=== PATIENT | female | born 1935 | race Two or more races ===

== ENCOUNTER 2019-06-25 02:23 | Emergency (ER) | payer OTHER ==
[~2019-06-25] VITALS: Ht 165.1 cm; Wt 97.5 kg
[2019-06-25 02:25] VITALS: BP 126/62
--- NOTE | 2019-06-25 02:25 | NUR ---
ED Nurse Note: Patient carlos RA 60 from home c/o sub sternal chest pain radiating to her back that has been an on going issue for the past 30 minutes, patient was given 1 spray of nitro en route and on time of arrival is still complaining of chest pain. patient is alert and oriented x4. Patient describes her pain as a pressure like pain
[2019-06-25] MEDS ORDERED: Nitroglycerin 2% oint pkt TOPIC ONE (02:30)
[2019-06-25] MEDS ORDERED: LORazepam Inj 2mg/ml 1ml IV ONE (02:30)
[2019-06-25] MEDS ORDERED: Aspirin Baby 81mg ORAL ONE (02:45)
--- NOTE | 2019-06-25 03:08 | NUR ---
HAND-OFF: Report given to JOE Kraus.
[2019-06-25] MEDS ORDERED: Morphine Sulfate 2mg/ml Inj(IV/IM USE ONLY) IVP ONE ×2 (03:15→05:15)
--- NOTE | 2019-06-25 03:17 | Emergency Room Report ---
History of Present Illness General Chief Complaint: Chest Pain Source: Patient, EMS Present Illness HPI Patient presents via EMS with substernal chest pain. Is 07/27. Apparently they were having a heated discussion at a family gathering and the patient was upset. Paramedics administered 1 spray of nitroglycerin with some help. The patient also feels anxious. Aspirin was held in the field because the patient states that she has a "allergy" which is actually that she gets stomach upset with aspirin. She poorly characterizes the pain. The patient has risk factors of hypertension, hypercholesterol and diabetes. There is no history of smoking. No fevers or chills. No productive cough. No swelling or calf tenderness. The patient is incontinent and wears a Pampers and denies any dysuria. There is no diarrhea. No joint pain. Allergies: Coded Allergies: No Known Allergies (Unverified , 06/25/19) Patient History Past Medical History: see triage record Social History: Denies: smoking, alcohol use, drug use Social History Narrative With family Last Menstrual Period: n/a Reviewed Nursing Documentation: PMH: Agreed; PSxH: Agreed Nursing Documentation-PMH Past Medical History: No Stated History Review of Systems All Other Systems: negative except mentioned in HPI Physical Exam Vital Signs Date Time Temp Pulse Resp B/P (MAP) Pulse Ox O2 Delivery O2 Flow Rate FiO2 06/25/19 02:19 98.4 74 18 156/66 (96) 98 Room Air Sp02 EP Interpretation: reviewed, normal General Appearance: well appearing, GCS 15, mild distress, obese Head: normocephalic, atraumatic Eyes: bilateral eye normal inspection, bilateral eye PERRL, bilateral eye EOMI ENT: moist mucus membranes Neck: supple Respiratory: chest non-tender, lungs clear, normal breath sounds Cardiovascular #1: regular rate, rhythm Cardiovascular #2: 2+ radial (R) Gastrointestinal: normal inspection, normal bowel sounds, non tender, no mass, non-distended, overweight Musculoskeletal: back normal, normal range of motion Neurologic: alert, grossly normal, oriented - X2 Psychiatric: anxious - Tearful Skin: no rash Medical Decision Making Diagnostic Impression: Primary Impression: Chest pain Qualified Codes: R07.9 - Chest pain, unspecified Additional Impressions: Anxiety Urinary tract infection Qualified Codes: N30.00 - Acute cystitis without hematuria Hypokalemia ER Course Presents with substernal chest pain with several risk factors. Differential includes acute myocardial infarction, acute coronary syndrome, anxiety, reflux amongst others. Patient evaluated with EKG, chest x-ray and labs. The patient is treated with nitrates, lorazepam and a small dose of aspirin. The patient is placed on a monitoring tech EKG sinus rhythm with rate of 75 normal EKG. Chest x-ray paratracheal haziness RUL. Initial troponin negative. Pain still persisting. Down to 8/10 but comes in waves and is severe. Morphine is administered. The patient is more calm after Lorazepam. Urine returns with nitrites and pyuria. Rocephin ordered. K low. ordered. Pain improved. Discussed with Dr. Murphy who accepts in transfer. CT ordered as abnormal Xray and suggested to r/o aneurism. Slight increase in pain before CT. Morphine repeated. After CT pain returned. Poorly characterized. Repeat EKG. Repeat EKG with sinus bradycardia rate 57 first-degree AV block voltage criteria for left ventricular hypertrophy and prolonged QT of 478ms. Nonspecific ST-T wave changes. Performed at 5:31. Vomit after morphine and [place]. Improved. CT chest no aneurism. Patient transferred for observation ALS. Laboratory Tests Test 06/25/19 03:14 White Blood Count 7.5 K/UL (4.8-10.8) Red Blood Count 3.98 M/UL (4.20-5.40) L Hemoglobin 12.0 G/DL (12.0-16.0) Hematocrit 35.6 % (37.0-47.0) L Mean Corpuscular Volume 89 FL (80-99) Mean Corpuscular Hemoglobin 30.3 PG (27.0-31.0) Mean Corpuscular Hemoglobin Concent 33.8 G/DL (32.0-36.0) Red Cell Distribution Width 11.5 % (11.6-14.8) L Platelet Count 290 K/UL (150-450) Mean Platelet Volume 5.6 FL (6.5-10.1) L Neutrophils (%) (Auto) 56.6 % (45.0-75.0) Lymphocytes (%) (Auto) 27.3 % (20.0-45.0) Monocytes (%) (Auto) 11.6 % (1.0-10.0) H Eosinophils (%) (Auto) 3.7 % (0.0-3.0) H Basophils (%) (Auto) 0.8 % (0.0-2.0) Prothrombin Time 10.2 SEC (9.30-11.50) Prothrombin Time INR 1.0 (0.9-1.1) PTT 27 SEC (23-33) Urine Color Pale yellow Urine Appearance Slightly cloudy Urine pH 6.5 (4.5-8.0) Urine Specific [place] 1.010 (1.005-1.035) Urine Protein 2+ (NEGATIVE) H Urine Glucose (UA) Negative (NEGATIVE) Urine Ketones Negative (NEGATIVE) Urine Blood 3+ (NEGATIVE) H Urine Nitrite Positive (NEGATIVE) H Urine Bilirubin Negative (NEGATIVE) Urine Urobilinogen Normal MG/DL (0.0-1.0) Urine Leukocyte Esterase 1+ (NEGATIVE) H Urine RBC 2-4 /HPF (0 - 2) H Urine WBC 5-10 /HPF (0 - 2) H Urine Squamous Epithelial Cells Moderate /LPF (NONE/OCC) H Urine Bacteria Many /HPF (NONE) H Sodium Level 130 MMOL/L (136-145) L Potassium Level 2.8 MMOL/L (3.5-5.1) L Chloride Level 95 MMOL/L (98-107) L Carbon Dioxide Level 23 MMOL/L (21-32) Anion Gap 13 mmol/L (5-15) Blood Urea Nitrogen 13 mg/dL (7-18) Creatinine 0.7 MG/DL (0.55-1.30) Estimate Glomerular Filtration Rate mL/min (>60) Glucose Level 135 MG/DL (74-106) H Calcium Level 9.4 MG/DL (8.5-10.1) Total Bilirubin 0.3 MG/DL (0.2-1.0) Aspartate Amino Transferase (AST) 15 U/L (15-37) Alanine Aminotransferase (ALT) 17 U/L (12-78) Alkaline Phosphatase 66 U/L (46-116) Total Creatine Kinase 62 U/L (26-308) Troponin I 0.000 ng/mL (0.000-0.056) Pro-B-Type Natriuretic Peptide 105 pg/mL (0-125) Total Protein 7.8 G/DL (6.4-8.2) Albumin 3.9 G/DL (3.4-5.0) Globulin 3.9 g/dL Albumin/Globulin Ratio 1.0 (1.0-2.7) EKG Diagnostic Results Rate: normal Rhythm: NSR ST Segments: no acute changes ASA given to the pt in ED: Yes Rhythm Strip Diag. Results EP Interpretation: yes Rhythm: NSR, no PVC's, no ectopy Chest X-Ray Diagnostic Results Chest X-Ray Diagnostic Results : Chest X-Ray Ordered: Yes # of Views/Limited/Complete: 1 View Indication: Chest Pain Interpretation: no consolidation, no effusion, no pneumothorax, other - Right upper lobe paratracheal haziness Impression: Other Electronically Signed by: Electronically signed by Gera Washington MD CT/MRI/US Diagnostic Results CT/MRI/US Diagnostic Results : Imaging Test Ordered: CT chest Impression 1. No aortic dissection or aneurysm. Moderate to extensive atherosclerotic changes of the aorta as described. 2. No evidence of acute abnormality. Last Vital Signs Date Time Temp Pulse Resp B/P (MAP) Pulse Ox O2 Delivery O2 Flow Rate FiO2 06/25/19 09:03 97.9 76 16 160/87 99 Room Air Status: improved Disposition: PLACE IN OBSERVATION Condition: Serious Referrals: NON PHYSICIAN (PCP) Gera Washington MD Jun 25, 2019 03:17
[2019-06-25 03:22] LABS: BASOPHILS % (AUTO) 0.8 % (0.0-2.0); EOSINOPHILS % (AUTO) 3.7 % (0.0-3.0); HEMATOCRIT 35.6 % (37.0-47.0); LYMPHOCYTES % (AUTO) 27.3 % (20.0-45.0); MEAN CORPUSCULAR VOLUME 89 FL (80-99); MONOCYTES % (AUTO) 11.6 % (1.0-10.0); NEUTROPHILS % (AUTO) 56.6 % (45.0-75.0); PLATELET COUNT 290 K/UL (150-450); RED BLOOD COUNT 3.98 M/UL (4.20-5.40); RED CELL DISTRIBUTION WIDTH 11.5 % (11.6-14.8); WHITE BLOOD COUNT 7.5 K/UL (4.8-10.8)
[2019-06-25 03:24] LABS: BILIRUBIN, URINE NEGATIVE (NEGATIVE); COLOR,URINE PALE YELLOW; GLUCOSE, URINE (UA) NEGATIVE (NEGATIVE); KETONES,URINE NEGATIVE (NEGATIVE); LEUKOCYTE ESTERASE ,URINE 1+ (NEGATIVE); NITRITE,URINE POSITIVE (NEGATIVE); PH,URINE 6.5 (4.5-8.0); PROTEIN,URINE 2+ (NEGATIVE); UROBILINOGEN,URINE NORMAL MG/DL (0.0-1.0)
[2019-06-25 03:25] LABS: APPEARANCE,URINE SLIGHTLY CLOUDY
[2019-06-25 03:30] VITALS: BP 139/74
--- NOTE | 2019-06-25 03:30 | NUR ---
ED Nurse Note: Resumed care as pt primary, pt is in bed awake, alert and oriented x 4, pt daughter at bedside, pt is on cardiac monitoring, recently medicated, remains with pain at 4/10, pt is resting quietly, will continue to closely monitor and resume care as ordered.
[2019-06-25] MEDS ORDERED: cefTRIAXone 1 GM in NS 55 ML IVPB ONE (03:45)
[2019-06-25 03:48] LABS: ALANINE AMINOTRANSFERASE 17 U/L (12-78); ALBUMIN 3.9 G/DL (3.4-5.0); ALKALINE PHOSPHATASE 66 U/L (46-116); ANION GAP 13 mmol/L (5-15); ASPARTATE AMINO TRANSFERASE 15 U/L (15-37); BILIRUBIN,TOTAL 0.3 MG/DL (0.2-1.0); BLOOD UREA NITROGEN 13 mg/dL (7-18); CALCIUM 9.4 MG/DL (8.5-10.1); CARBON DIOXIDE 23 MMOL/L (21-32); CHLORIDE 95 MMOL/L (98-107); CREATINE KINASE 62 U/L (26-308); CREATININE 0.7 MG/DL (0.55-1.30); POTASSIUM 2.8 MMOL/L (3.5-5.1); SODIUM 130 MMOL/L (136-145)
--- NOTE | 2019-06-25 03:51 | NUR ---
Face sheet, clinical notes faxed to [facility] at [phone] as requested.
--- NOTE | 2019-06-25 03:54 | Diagnostic Imaging Report ---
EXAM: XR Chest, 1 View CLINICAL HISTORY: CP TECHNIQUE: Frontal view of the chest. COMPARISON: No relevant prior studies available. IMPRESSION: There is increased paramediastinal masslike consolidation in the right upper lobe. May represent a tortuous aorta, mass, or airspace disease. Correlate with chest CT. Cardiomegaly. No pleural effusion. 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
[2019-06-25] MEDS ORDERED: Isovue-300 100ml vial INJ PRN (04:15)
[2019-06-25] MEDS: Sodium Chloride 550 ML IV SCH ×2 (04:21→08:27)
[2019-06-25 04:30] VITALS: BP 147/71
--- NOTE | 2019-06-25 04:50 | NUR ---
ED Nurse Note: Pt re-medicated for pain, incontinent of urine, entire bed soiled, pt given complete bath and linen change, after pain level increased again, pt is currently going down to imaging for CT of chest , family at bedside, iv site patent, consent form signed.
[2019-06-25] MEDS ORDERED: Morphine Sulfate 2mg/ml Inj(IV/IM USE ONLY) ONE (05:03)
--- NOTE | 2019-06-25 05:20 | NUR ---
ED Nurse Note: Pt had episode of emesis, large amount of clear, sputum like contents, md aware, meds given, pt remains on monitoring, pt actually states pain is much better after emesis, rated now at 3/10, pt resting quietly in bed, iv fluids infusing and completing, family at bedside, iv site patent, pt reports pain at mid epigastric and not chest, repeat ekg done also, will continue to closely montor while waiting for pt disposition and results.
[2019-06-25] MEDS ORDERED: Morphine Sulfate 4mg/ml Inj (IV USE ONLY) IVP ONE (05:30)
[2019-06-25] MEDS ORDERED: Mylanta II UD 30ml ORAL ONE (05:30)
[2019-06-25 06:00] VITALS: BP 161/85
--- NOTE | 2019-06-25 06:03 | Diagnostic Imaging Report ---
EXAM: CT Chest With Intravenous Contrast CLINICAL HISTORY: AA TECHNIQUE: Axial computed tomography images of the chest with intravenous contrast. CTDI is 23 mGy and DLP is 1081 mGy-cm. One or more of the following dose reduction techniques were used: automated exposure control, adjustment of the mA and/or kV according to patient size, use of iterative reconstruction technique. COMPARISON: No relevant prior studies available. FINDINGS: Limitations: The study is slightly limited by patient motion artifact. Lungs: Unremarkable. No mass. No consolidation. Pleural space: Unremarkable. No pneumothorax. No significant effusion. Heart: Unremarkable. No cardiomegaly. No significant pericardial effusion. Bones/joints: It should be noted that the entire abdomen was also scanned, to just below the level of the iliac crests. No acute fracture. No dislocation. Soft tissues: Unremarkable. Vasculature: There is a moderate amount of atherosclerotic calcification of the thoracic and abdominal aorta. There is no aortic dissection or aneurysm. There is a moderate amount of mural thrombus within the descending thoracic aorta. Atherosclerotic calcifications result in narrowing at the origin of the right renal artery. There is also minimal narrowing at the origin of the superior mesenteric artery. Lymph nodes: Unremarkable. No enlarged lymph nodes. Kidneys and ureters: There is a 1.5 cm lower pole right renal cyst. There are additional subcentimeter hypodensities in both kidneys which are too small to characterize but likely also represent renal cysts. IMPRESSION: 1. No aortic dissection or aneurysm. Moderate to extensive atherosclerotic changes of the aorta as described. 2. No evidence of acute abnormality.
[2019-06-25 07:08] VITALS: BP 140/86
--- NOTE | 2019-06-25 07:11 | NUR ---
ED Nurse Note: Received patient resting in bed. daughter and son in law at bedside. vss as documented. no acute distress noted at this time. received transfer information. will give report at 0730.
[2019-06-25] MEDS ORDERED: METFORMIN HCL500 M1 ORAL (07:33)
[2019-06-25] MEDS ORDERED: SIMVASTATIN5 MG ORAL (07:33)
[2019-06-25] MEDS ORDERED: LOSARTAN POTASS25 MG ORAL (07:33)
--- NOTE | 2019-06-25 07:35 | NUR ---
ED Nurse Note: reported to ERMD about pt's previous K level and asked for redawing BMP.
--- NOTE | 2019-06-25 07:50 | NUR ---
ED Nurse Note: blood drawn and sent to lab.
[2019-06-25 08:18] LABS: ANION GAP 13 mmol/L (5-15); BLOOD UREA NITROGEN 9 mg/dL (7-18); CALCIUM 8.7 MG/DL (8.5-10.1); CARBON DIOXIDE 21 MMOL/L (21-32); CHLORIDE 97 MMOL/L (98-107); CREATININE 0.7 MG/DL (0.55-1.30); SODIUM 131 MMOL/L (136-145)
--- NOTE | 2019-06-25 08:22 | NUR ---
ED Nurse Note: Report given to JOE Hernandez
--- NOTE | 2019-06-25 08:44 | NUR ---
ED Nurse Note: EMS arrived. report given.
--- NOTE | 2019-06-25 09:02 | NUR ---
ED Nurse Note: pt ambulated to bathroom with steady gait and left unit with EMS and daughter.
[2019-06-25 09:03] VITALS: BP 160/87
--- NOTE | 2019-06-25 15:14 | Cardiology Report ---
APPROVED REPORT EKG Measurement Heart [id number] Sinus bradycardia with 1st degree AV block Minimal voltage criteria for LVH, may be normal variant Nonspecific T wave abnormality Prolonged QT Abnormal ECG
[2019-06-28] MEDS ORDERED: NITROFURANTOIN100 M2 ORAL (13:36)
--- NOTE | 2019-06-28 13:37 | Emergency Room Report ---
Physical Exam Vital Signs Date Time Temp Pulse Resp B/P (MAP) Pulse Ox O2 Delivery O2 Flow Rate FiO2 06/25/19 02:19 98.4 74 18 156/66 (96) 98 Room Air Medical Decision Making Diagnostic Impression: Primary Impression: Chest pain Additional Impressions: Urinary tract infection Anxiety Hypokalemia ER Course Urine culture from patient's emergency department visit returned positive growing E. coli and pansensitive to almost all antibiotics. Macrobid was sent to the patient's pharmacy. I left a voicemail on the patient's phone as there was no answer after repeated attempts. We will send a certified letter as well. Last Vital Signs Date Time Temp Pulse Resp B/P (MAP) Pulse Ox O2 Delivery O2 Flow Rate FiO2 06/25/19 09:03 97.9 76 16 160/87 99 Room Air Disposition: PLACE IN OBSERVATION Condition: Serious Scripts Nitrofurantoin Monohyd/M-Cryst* (MACROBID 100 MG*) 100 Mg Capsule 100 MG ORAL EVERY 12 HOURS for 7 Days, #14 CAP Prov: Gregor Manley MD 06/28/19 Referrals: NON PHYSICIAN (PCP) Gregor Manley MD Jun 28, 2019 13:37
== END 2019-06-25 09:03 | disposition short-term general hospital (02) ==
LOC: EDBD 02:23 → EMR 02:58
DX: R07.9 Chest pain, unspecified (principal); N30.00 Acute cystitis without hematuria; F41.9 Anxiety disorder, unspecified; E87.6 Hypokalemia
CPT/HCPCS: 36415; 71045; 71260; 80048; 80053; 81003; 82550; 83880; 84484; 85025; 85610; 85730; 87086; 87181; 93005; 96365; 96367; 96375; 99284; J0696; J2270; J2405; J3480; J7040; Q9967; S0028; J8499